=== PATIENT | male | born 1995 | race American Indian/Alaskan Native ===

== ENCOUNTER 2019-09-16 14:39 | Emergency (ER) | payer SELFPAY ==
[2019-09-16 14:48] VITALS: BP 134/44
--- NOTE | 2019-09-16 16:56 | Emergency Department Report ---
{null, Chief Complaint: Medical Clearance Stated Complaint: URINARY ISSUES Time Seen by Provider: 09/16/19 16:53 - HPI History of Present Illness: pt states that his partner tested positive for chlamydia pt denies any symptoms at all no abd pain, no fever, n/v/d, no pain or swelling in the testicles no pmhx no allergies to meds pt presents for routine STD testing Patient is presenting with a nonmedical emergency at this time Patient will be referred to the health department and primary care clinics for STD testing advised pt please follow up with the health department or a clinic for a full STD panel. avoid sexual intercourse until testing. have any partner tested and treated as well. return to the emergency room for any new or worsening symptoms. Discussed strict return precautions with patient - Exam Vital Signs: Vital Signs 09/16/19 14:46 Temperature 97.6 F Pulse Rate 47 L Respiratory 16 Rate Blood Pressure 134/44 O2 Sat by Pulse 100 Oximetry MSE screening note: Focused history and physical exam performed. ED Disposition for MSE Clinical Impression: Concern about STD in male without diagnosis Disposition: - MED SCREENING EXAM-LEFT Is pt being admited?: No Does the pt Need Aspirin: No Condition: Stable Instructions: Sexually Transmitted Diseases (ED), Safe Sex (ED) Additional Instructions: please follow up with the health department or a clinic for a full STD panel. avoid sexual intercourse until testing. have any partner tested and treated as well. return to the emergency room for any new or worsening symptoms. Referrals: [facility] [Outside] - 2-3 Days RAUL HICKS MD [Staff Physician] - 2-3 Days [facility] [Outside] - 2-3 Days [facility] [Outside] - 2-3 Days Time of Disposition: 16:54 Print Language: TRISTANIAN }
== END 2019-09-16 16:57 | disposition left against medical advice (07) ==
LOC: ED 14:39
DX: Z00.00 Encounter for general adult medical examination without abnormal findings (principal)
CPT/HCPCS: 99281